=== PATIENT | female | born 1935 | race Two or more races ===

== ENCOUNTER 2017-12-26 15:09 | Inpatient (IN) | payer OTHER ==
[~2017-12-26] VITALS: Ht 157.5 cm; Wt 72.6 kg
[~2017-12-26 15:09] MED LIST: DICLOFENAC SODIU5 ML; EXELON1 PATCH .1; SIMVASTATIN10 MG; SYNTHROID125 MCG; TEMAZEPAM15 MG; XARELTO15 MG; [UNRECOGNIZED DRUG - REMARK]
== END 2018-01-06 19:15 | disposition home or self-care (01) | DRG 592 ==
LOC: ER 15:09 → MEDJ 19:15 → MEDI 12-30 18:12
PROC: CP1Z1ZZ Planar Nuclear Medicine Imaging of Musculoskeletal System, All using Technetium 99m (Tc-99m) (ICD-10-PCS; principal; 2017-12-27)
PROC: CW1NLZZ Planar Nuclear Medicine Imaging of Whole Body using Gallium 67 (Ga-67) (ICD-10-PCS; 2017-12-29)
PROC: BW40ZZZ Ultrasonography of Abdomen (ICD-10-PCS; 2018-01-04)
DX: L89.893 Pressure ulcer of other site, stage 3 (principal); N39.0 Urinary tract infection, site not specified; L89.312 Pressure ulcer of right buttock, stage 2; G30.1 Alzheimer's disease with late onset; F02.80 Dementia in other diseases classified elsewhere, unspecified severity, without behavioral disturbance, psychotic disturbance, mood disturbance, and anxiety; Z74.01 Bed confinement status; L03.032 Cellulitis of left toe; E86.0 Dehydration; B96.4 Proteus (mirabilis) (morganii) as the cause of diseases classified elsewhere; B95.2 Enterococcus as the cause of diseases classified elsewhere; K52.89 Other specified noninfective gastroenteritis and colitis; B95.7 Other staphylococcus as the cause of diseases classified elsewhere; K59.09 Other constipation; B37.2 Candidiasis of skin and nail; L89.131 Pressure ulcer of right lower back, stage 1

== ENCOUNTER 2018-09-10 20:22 | Inpatient (IN) | payer OTHER ==
[~2018-09-10] VITALS: Ht 162.6 cm; Wt 56.7 kg
--- NOTE | 2018-09-10 20:37 | NUR ---
PACIENTE ALERTA,DESORIENTADA POR WENDY ESFERAS,SE RECIBE EN AMBULANCIA EN COMPANIA DE FAMILIAR. FAMILIAR REFIERE PACIENTE PRESENTA ULCERA EN GLUTEO DERECHO DE DOS SEMANAS DE EVOLUCION.
--- NOTE | 2018-09-11 00:12 | NUR ---
PACIENTE ALERTA Y DESORIENTADA EN LYNNE 3 ESFERAS EN COMPANIA DE HIJO EN CAMA CON BARANDAS ELEVADAS POR GONZÁLES SEGURIDAD. PACIENTE SE OBSERVA CON BUEN PATRON RESPIRATORIO Y PIEL TIBIA AL TACTO, PACIENYE ANQUILOSADA. SE ORIENTA A PACIENTE Y MADINA SOBRE PROCEDIMIENTO, REFIERE ENTENDER. SE EXTRAE MUESTRAS DE LABORATORIO CON MEDIDAS ASEPTICAS Y SE LEANDRO CULTIVO DE ULCERAS. SE INICIA CANALIZACION EN BRAZO LT CON ANGIO #18 Y SE ADMINISTRA MEDICAMENTOS FABIENNE ORDEN MEDICA. SE OBSERVA ULCERAS INFECTADAS EN AREA SACRAL Y GLUTEO RT. SE INSERTA SONDA URINARIA CON MEDIDAS ASEPTICAS Y ESTERILES EL CUAL DRENA ORINA COLOR AMARILLO CON SEDIMENTACION Y FETIDEZ. SE MANTIENE BAJO OBSERVACION POR CAMBIOS.
--- NOTE | 2018-09-11 07:34 | NUR ---
SE RECIBE PTE FEMENIA DE 82 YRS ALERTA CONCIENTE Y TRANQUILA EN COMPANIA DE FAMILIAR. PTE EN SKYE CON BARANDAS ELEVADA.SE MANTIENE PENDENDIENTE A SER REVALUADA . SE MANTIENE BAJO OBSERVACION.
== END 2018-09-16 18:26 | disposition home or self-care (01) | DRG 593 ==
LOC: ER 20:22 → MEDJ 09-11 12:02 → SEC-K 09-11 12:02 → SURH 09-11 14:53 → MEDJ 09-11 18:15
PROVIDERS: ADMIT Internal Medicine
PROC: 8E0ZXY6 Isolation (ICD-10-PCS; principal; 2018-09-13)
DX: L89.312 Pressure ulcer of right buttock, stage 2 (principal); N39.0 Urinary tract infection, site not specified; B37.89 Other sites of candidiasis; L89.152 Pressure ulcer of sacral region, stage 2; G30.0 Alzheimer's disease with early onset; F02.80 Dementia in other diseases classified elsewhere, unspecified severity, without behavioral disturbance, psychotic disturbance, mood disturbance, and anxiety; E03.8 Other specified hypothyroidism; Z86.718 Personal history of other venous thrombosis and embolism; Z74.01 Bed confinement status; Z88.2 Allergy status to sulfonamides; F41.8 Other specified anxiety disorders; K21.9 Gastro-esophageal reflux disease without esophagitis; E86.0 Dehydration; B95.61 Methicillin susceptible Staphylococcus aureus infection as the cause of diseases classified elsewhere; B96.4 Proteus (mirabilis) (morganii) as the cause of diseases classified elsewhere; B96.5 Pseudomonas (aeruginosa) (mallei) (pseudomallei) as the cause of diseases classified elsewhere; B96.29 Other Escherichia coli [E. coli] as the cause of diseases classified elsewhere; K59.09 Other constipation; E88.09 Other disorders of plasma-protein metabolism, not elsewhere classified

== ENCOUNTER 2018-11-06 08:32 | Inpatient (IN) | payer OTHER ==
[~2018-11-06] VITALS: Ht 157.5 cm; Wt 56.7 kg
[~2018-11-06 08:32] MED LIST changes: -SYNTHROID125 MCG; +SYNTHROID125 MCG PO
--- NOTE | 2018-11-06 08:43 | NUR ---
SE RECIBE PTE EN COMPANIA DE PARAMEDICOS LOS CUALES REFIERE TRAER A PTE POR FIEBRE. PTE SE OBSERVA ANQUILOSADA, CON STEVENSON COLOCADO BAJANDO A GRAVEDAD Y PARCHOS EN AREA SACRAL. SE MIDEN S/V A PTE Y SE COLOCA EN AREA DE OBSERVACION.
--- NOTE | 2018-11-06 09:38 | NUR ---
SE EVI MUESTRAS DE LABORATORIO UTILIZANDO MEDDIAS ASEPTICAS SE COLOCA H/L A PTE EL CUAL SE ENCUENTRA PATENTE AHMET DE EDEMA Y ENROJECIMIENTO. SE EVI CULTIVOS DE SNAGRE Y ULCERAS. PTE SE CONTINUA MONITORIANDO POR CAMBIOS.
--- NOTE | 2018-11-06 15:56 | NUR ---
SE RECIBE PTE LA CUAL SE ENCUENTRA ACOM[place]NA[place] POR FAMILIAR, LA MISMA PRESENTA AREA DE VENOPUNCION PATENTE CON IV 0.45/D5W AT 125. PTE PRESENTA PIEL TIBIA A EL TACTO CON STEVENSON CATHETER DE GONZÁLES HOGAR DRENANDO ORINA A GRAVEDAD. PTE PRESENTA ULCERA SACRAL, CADERA DERECHA E IZQ, PLANTA DE PIE NECROTICA CON CONSULTA CON DR. ROSALBA SUAREZ.
[2018-12-06] MEDS ORDERED: Intestinex CAP PO (09:53)
[2018-12-06] MEDS ORDERED: LEVOTHYROXINE125 MCG PO (09:53)
== END 2018-12-06 16:30 | disposition home or self-care (01) | DRG 463 ==
LOC: ER 08:32 → MEDJ 16:42
PROVIDERS: ADMIT Internal Medicine
PROC: 8E0ZXY6 Isolation (ICD-10-PCS; 2018-11-06)
PROC: B246ZZZ Ultrasonography of Right and Left Heart (ICD-10-PCS; 2018-11-07)
PROC: 0JB70ZZ Excision of Back Subcutaneous Tissue and Fascia, Open Approach (ICD-10-PCS; principal; 2018-11-09)
PROC: 3E0436Z Introduction of Nutritional Substance into Central Vein, Percutaneous Approach (ICD-10-PCS; 2018-11-13)
PROC: 02HV33Z Insertion of Infusion Device into Superior Vena Cava, Percutaneous Approach (ICD-10-PCS; 2018-11-13)
PROC: B44HZZZ Ultrasonography of Bilateral Lower Extremity Arteries (ICD-10-PCS; 2018-11-23)
DX: M46.28 Osteomyelitis of vertebra, sacral and sacrococcygeal region (principal); L89.154 Pressure ulcer of sacral region, stage 4; L89.313 Pressure ulcer of right buttock, stage 3; N39.0 Urinary tract infection, site not specified; K52.1 Toxic gastroenteritis and colitis; E85.89 Other amyloidosis; L97.328 Non-pressure chronic ulcer of left ankle with other specified severity; T36.8X5A Adverse effect of other systemic antibiotics, initial encounter; I08.3 Combined rheumatic disorders of mitral, aortic and tricuspid valves; I77.1 Stricture of artery; D72.828 Other elevated white blood cell count; I80.8 Phlebitis and thrombophlebitis of other sites; B96.29 Other Escherichia coli [E. coli] as the cause of diseases classified elsewhere; B95.2 Enterococcus as the cause of diseases classified elsewhere; B95.61 Methicillin susceptible Staphylococcus aureus infection as the cause of diseases classified elsewhere; B96.5 Pseudomonas (aeruginosa) (mallei) (pseudomallei) as the cause of diseases classified elsewhere; B95.1 Streptococcus, group B, as the cause of diseases classified elsewhere; B96.89 Other specified bacterial agents as the cause of diseases classified elsewhere; E86.0 Dehydration; E11.622 Type 2 diabetes mellitus with other skin ulcer; R50.9 Fever, unspecified; G30.8 Other Alzheimer's disease; F02.80 Dementia in other diseases classified elsewhere, unspecified severity, without behavioral disturbance, psychotic disturbance, mood disturbance, and anxiety; D64.89 Other specified anemias; R13.19 Other dysphagia; E88.09 Other disorders of plasma-protein metabolism, not elsewhere classified; E03.8 Other specified hypothyroidism; Z74.01 Bed confinement status; Z16.12 Extended spectrum beta lactamase (ESBL) resistance